=== PATIENT | male | born 1955 | race African-American/Black ===

== ENCOUNTER 2022-03-10 12:09 | Emergency (ER) | payer OTHER ==
[~2022-03-10] VITALS: Ht 172.7 cm; Wt 91.0 kg
[2022-03-10] MEDS ORDERED: CLONIDINE 0.1MG TABLET PO ONE (12:45)
[2022-03-10 12:58] VITALS: BP 158/96
[2022-03-10 14:01] LABS: BASOPHILS % 0.7 % (0.0-2.0); EOSINOPHILS % 7.7 % (0.0-5.0); HEMATOCRIT. 45.9 % (42.0-52.0); HEMOGLOBIN. 15.2 g/dL (14.0-18.0); LYMPHOCYTES % 17.6 % (20.0-50.0); MEAN CORPUSCULAR HEMOGLOBIN 30.9 pg (28.0-32.0); MEAN CORPUSCULAR VOLUME 93.2 fL (80.0-94.0); MEAN PLATELET VOLUME 7.2 fl (7.4-10.4); MONOCYTES % 9.7 % (2.0-8.0); NEUTROPHILS % 64.3 % (40.0-76.0); PLATELET 343 x1000/uL (130-400); RED BLOOD CELL COUNT 4.93 mill/uL (4.7-6.1); RED CELL DISTRIBUTION WIDTH 14.6 % (11.6-14.6)
[2022-03-10 14:04] LABS: CHLORIDE 102 mEq/L (98-107)
[2022-03-10] MEDS ORDERED: AMLO5TAB88 MT (14:34)
== END 2022-03-10 15:26 | disposition home or self-care (01) ==
LOC: ER 12:09
DX: R06.00 Dyspnea, unspecified (principal); I10 Essential (primary) hypertension; Z91.14 Patient's other noncompliance with medication regimen
CPT/HCPCS: 36415; 71045; 80053; 83880; 84484; 85025; 99284